=== PATIENT | female | born 1970 | race African-American/Black ===

== ENCOUNTER 2024-03-23 19:32 | Emergency (ER) | payer OTHER, SELFPAY ==
--- NOTE | ~2024-03-23 | CT_ITS ---
EXAMINATION: CT lumbar spine wo con DATE: 03/23/2024 21:33 INDICATION: Back pain TECHNIQUE: Computed tomography (CT) of the lumbar spine was performed without intravenous contrast. A utomated exposure control and iterative reconstruction technique were employed. The dose-length produ ct was 1163.95 mGy-cm. COMPARISON: None FINDINGS: Alignment is normal. Vertebral body heights are normal. Disc heights are normal with small degenerative endplate osteophytes. [place]'s disease with degenerative change along the abutting ceph alad and caudal margins of the lumbar spinous processes. There is multilevel bilateral mild to modera te facet osteoarthritis. Moderate bilateral neural foraminal stenosis at L5-S1. Mild neural foraminal stenosis bilaterally at L4-L5. Paravertebral soft tissues are unremarkable. 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 2.2 x 1.4 cm lesion at the right posterior iliac spine. IMPRESSION: 1. Mild lumbar spondylosis with no acute osseous abnormality. 2. 2.2 x 1.4 cm sclerotic lesion at the right posterior iliac spine which could represent a bone edgar nd but would consider bone scan for further evaluation particularly fibular is a known history of mal ignancy. Reviewed, dictated and finalized at location A. IMPRESSION: 1. Mild lumbar spondylosis with no acute osseous abnormality. 2. 2.2 x 1.4 cm sclerotic lesion at the right posterior iliac spine which could represent a bone island but would consider bone scan for further evaluation pa rticularly fibular is a known history of malignancy.
[2024-03-23 19:42] VITALS: BP 148/76; PULSE 84; RESP 18; TEMP 36.6; O2SAT 99
--- NOTE | 2024-03-23 21:21 | PC.NURSE ---
This RN attempted to administer ordered medications at this time. Pt in CT.
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
[2024-03-23] MEDS: KETOROLAC (*BKC) 60 MG/2 ML VIAL IM (22:09)
[2024-03-23] MEDS: methylPREDNISolone SOD SUCC 125 MG VIAL IM (22:09)
[2024-03-23] MEDS: HYDROcodone/acetaminophen (*CRX) 5-325 MG TABLET 1 TAB PO (22:09)
[2024-03-23 22:59] LABS: Add Urine Microscopic? YES; Appearance Urine Cloudy (Clear); Bacteria Urine 1+ /hpf; Bilirubin Urine 1+ (Negative); Blood Urine Negative (Negative); Budding Yeast Urine Present /hpf; Color Urine Dark Yellow (Yellow); Glucose Urine UA Negative (Negative); Ketones Urine 2+ mg/dL (Negative); Leukocyte Esterase Ur 1+ LEU/UL (Negative); Need Manual Microscopic Reviewed; Nitrate Urine Negative (Negative); Non Pathogenic Casts 0-2; Protein Urine Trace mg/dL (Negative); RBC Urine 0-2 /hpf (0-2); Specific Grav Ur 1.028 (1.001-1.035); Squamous Epithelial Cell Urine Many /hpf (Few)
[2024-03-23] MEDS: CYCLOBENZAPRINE HCL 5 MG TABLET PO (23:14)
== END 2024-03-23 23:19 | disposition home or self-care (01) ==
PROVIDERS: Emergency Provider Registered Nurse
DX: M47.816 Spondylosis without myelopathy or radiculopathy, lumbar region (principal); M89.8X8 Other specified disorders of bone, other site; R82.998 Other abnormal findings in urine
CPT/HCPCS: 72131; 81001; 87086; 87088; 96372; 99284; A9270; J1885; J2919